=== PATIENT | male | born 1990 | race Two or more races ===

== ENCOUNTER 2017-03-25 09:29 | Emergency (ER) | payer SELFPAY ==
[~2017-03-25] VITALS: Ht 172.7 cm; Wt 95.3 kg
[2017-03-25 09:33] VITALS: BP 123/79
== END 2017-03-25 10:24 | disposition home or self-care (01) ==
LOC: ER 09:29
DX: L60.0 Ingrowing nail (principal); B99.9 Unspecified infectious disease